=== PATIENT | male | born 1955 | race Caucasian/White ===

== ENCOUNTER 2016-10-27 10:35 | Emergency (ER) | payer BC ==
[2016-10-27 12:13] LABS: URINE BILIRUBIN NEGATIVE (NEGATIVE); URINE BLOOD 1+ (NEGATIVE); URINE GLUCOSE (UA) NEGATIVE (NEGATIVE); URINE LEUKOCYTE ESTERASE NEGATIVE (NEGATIVE); URINE NITRITE NEGATIVE (NEGATIVE); URINE PROTEIN 1+ (NEGATIVE); URINE UROBILINOGEN NORMAL (0-1 mg/dl)
[2016-10-27 12:14] LABS: URINE APPEARANCE SL CLOUDY; URINE COLOR YELLOW
[2016-10-27 12:33] LABS: URINE EPITHELIAL CELLS 0-1 /hpf; URINE WBC NEG /hpf
[2016-10-27 12:34] LABS: URINE BACTERIA RARE
== END 2016-10-27 11:56 | disposition home or self-care (01) ==
LOC: ED 10:35
DX: T83.098A Other mechanical complication of other urinary catheter, initial encounter (principal); Y84.6 Urinary catheterization as the cause of abnormal reaction of the patient, or of later complication, without mention of misadventure at the time of the procedure